=== PATIENT | female | born 1945 | race Caucasian/White ===

== ENCOUNTER → 2024-08-02 | Outpatient (CLI) | payer MEDICARE ==
[2024-08-02 13:01] LABS: African American GFR (CKD) 86 (>60 ml/min/1.73 sqM); Albumin 4.3 g/dL (3.5-5.0); Anion Gap 5 mmol/L; Blood Urea Nitrogen 23 mg/dL (7-17); Calcium 9.5 mg/dL (8.4-10.2); Carbon Dioxide 32 mmol/L (22-30); Chloride 102 mmol/L (98-107); Glucose 148 mg/dL (74-99); Non-African American GFR(CKD) 75 (>60 ml/min/1.73 sqM); Potassium 4.8 mmol/L (3.5-5.1); Sodium 139 mmol/L (137-145)
[2024-08-02 13:36] LABS: Phosphorus 3.7 mg/dL (2.5-4.5)
--- NOTE | 2024-08-02 15:05 | CT ---
EXAMINATION TYPE: CT abdomen pelvis wo/w con DATE OF EXAM: 08/02/2024 COMPARISON: None CLINICAL INDICATION: Female, 78 years old with history of R10.9 UNSPECIFIED ABDOMINAL PAIN; PHH, IBS x2wks. TECHNIQUE: Performed with Oral Contrast and without and with IV Contrast, patient injected with 80ml mL of Isovu e 300. CT DLP: [address] CTDI: mGy Automated exposure control for dose reduction was used. FINDINGS: The lung bases are clear. The gallbladder is normal without distention, wall thickening, pericholecystic fluid or gallstones. T here is no biliary ductal dilatation. There is no focal mass or organomegaly involving the liver, pancreas, spleen or adrenal glands. There are approximately 3 nonobstructing calcifications in each kidney, the largest of which are tammi roximately 3 to 4 mm. There is no solid renal mass or hydronephrosis and there is homogeneous contras t enhancement of the renal parenchyma. There are multiple simple cortical cysts of both kidneys. The caliber the abdominal aorta is normal is no retroperitoneal adenopathy or hemorrhage. The bowel loops are normal in caliber and there is no evidence of dilatation or obstruction. No infla mmatory changes are identified in the bowel wall or mesentery. There are changes of chronic diverticu losis the sigmoid colon with multiple diverticula and wall thickening but no acute diverticulitis. There is no free intraperitoneal air or fluid. No pelvic mass, free fluid, abscess or adenopathy. There is a right hip prosthesis otherwise the osseous structures are intact. IMPRESSION: 1. No acute changes within the abdomen or pelvis. 2. Multiple small bilateral nonobstructing renal calcifications. Multiple pleural cortical cysts of t he kidneys. 3. Diverticulosis sigmoid colon without CT evidence of diverticulitis. [facility], , 08/02/2024 3:02 PM
== END | disposition home or self-care (01) ==
LOC: RADCTMAIN 11:58
PROVIDERS: ATTEND Internal Medicine Gastroenterology
DX: N28.1 Cyst of kidney, acquired (principal); K57.30 Diverticulosis of large intestine without perforation or abscess without bleeding; N28.89 Other specified disorders of kidney and ureter
CPT/HCPCS: 80069; 74178; 36415; Q9967